=== PATIENT | female | born 1955 | race Caucasian/White ===

== ENCOUNTER → 2017-07-05 | Outpatient (CLI) | payer OTHER ==
--- NOTE | 2017-07-05 10:23 | REPMRS ---
Patient History The patient states she had a clinical breast exam in 06/05 Patient is postmenopausal. Family history of breast cancer in 2 paternal aunts at age 60. Took hormonal contraceptives for 29 years. Took unspecified hormones for 4 years. Digital Woman Screen Mammo: July 05, 2017 - Exam #: [id number] Bilateral CC and MLO view(s) were taken. Technologist: Claudette Williamson, Technologist Prior study comparison: June 10, 2016, digital woman screen mammo performed at [facility]. June 05, 2015, digital woman screen mammo performed at [facility]. FINDINGS: There are scattered fibroglandular densities. There has been no change in the appearance of the mammogram from the prior studies. There is a mild amount of residual fibroglandular tissue which is fairly symmetric. There is no interval development of dominant mass, architectural distortion, or clustered microcalcification suggestive of malignancy. ASSESSMENT: BI-RADS/ACR category 1 mammogram. Negative. Recommendation Routine screening mammogram in 1 year (for women over age 40). This mammogram was interpreted with the aid of an FDA-approved computer-aided dectection system. Electronically Signed By: Franklin Morrissey MD 07/05/17 1083
== END ==
LOC: M WHC 08:49
PROVIDERS: ATTEND Obstetrics & Gynecology
DX: Z12.31 Encounter for screening mammogram for malignant neoplasm of breast (principal); Z80.3 Family history of malignant neoplasm of breast; Z78.0 Asymptomatic menopausal state; Z92.0 Personal history of contraception; Z79.890 Hormone replacement therapy

== ENCOUNTER → 2018-07-06 | Outpatient (CLI) | payer OTHER | LOC: M WHC 09:47 | DX: Z12.31 Encounter for screening mammogram for malignant neoplasm of breast (principal); Z78.0 Asymptomatic menopausal state; Z80.3 Family history of malignant neoplasm of breast; Z79.3 Long term (current) use of hormonal contraceptives; Z79.818 Long term (current) use of other agents affecting estrogen receptors and estrogen levels | CPT/HCPCS: 77067 ==

== ENCOUNTER → 2019-09-10 | Outpatient (CLI) | payer OTHER ==
--- NOTE | 2019-09-10 10:03 | REPMRS ---
Patient History The patient states she had a clinical breast exam in June 2019.Family history of breast cancer at age 60 in paternal aunt. Took hormonal contraceptives for 29 years. Took unspecified hormones for 4 years. 3D TOMOSYNTHESIS WAS PERFORMED. The [facility] lifetime risk for breast cancer is 11.0%. Digital Woman Screen Mammo: September 10, 2019 - Exam #: [id number] Bilateral CC and MLO view(s) were taken. Technologist: Mely Koroma, Technologist Prior study comparison: July 06, 2018, bilateral digital woman screen mammo performed at [facility]. July 05, 2017, digital woman screen mammo performed at [facility]. FINDINGS: There are scattered fibroglandular densities. There has been no change in the appearance of the mammogram from the prior studies. There is a mild amount of residual fibroglandular tissue which is fairly symmetric. There is no interval development of dominant mass, architectural distortion, or clustered microcalcification suggestive of malignancy. Assessment: BI-RADS/ACR category 1 mammogram. Negative Mammogram. Recommendation Routine screening mammogram in 1 year (for women over age 40). This mammogram was interpreted with the aid of an FDA-approved computer-aided dectection system. Electronically Signed By: Franklin Morrissey MD 09/10/19 1002
--- NOTE | 2019-09-13 13:33 | DEXA ---
AP SPINE L1 - L4 1.322 1.0 2.4 LT FEMUR TOTAL 0.976 -0.3 0.8 LT NECK 0.891 -1.1 0.3 RT FEMUR TOTAL 0.992 -0.1 0.9 RT NECK 0.887 -1.1 0.2 TOTAL BODY TOTAL OTHER COMMENTS: Normal bone densitometry of the spine. There is low bone density of the hips. The decreased density of the spine does represent a significant change. The increased density of the left hip does not represent a signature change. The increased density of the right hip does represent a signature change. The density of the spine has increased 26.7% since the initial exam on 05/08/2009. The spine density has increased 9.9% since the most recent exam on 06/10/2016. The density of the left hip has increased 3.9% since the initial exam on 05/08/2009. The density of the left hip has increased 1.1% since the most recent exam on 06/10/2016. The density of the right hip has increased 4.5% since the initial exam on 05/08/2009. The density of the right hip has increased 2.1% since the most recent exam on 06/10/2016. FOLLOW-UP: Recommendation for the next bone density exam: 2 years. IDALIA
== END ==
LOC: M WHC 09:09
PROVIDERS: ATTEND Obstetrics & Gynecology
DX: Z12.31 Encounter for screening mammogram for malignant neoplasm of breast (principal); Z13.820 Encounter for screening for osteoporosis; Z92.0 Personal history of contraception

== ENCOUNTER → 2020-08-18 | Outpatient (REF) | payer OTHER ==
[2020-08-18 18:45] LABS: C REACTIVE PROTEIN QUANTITATIV < 0.30 MG/DL (0.00-0.30); COMPLEMENT C3 107 MG/DL (90-180); COMPLEMENT C4 29 MG/DL (10-40)
[2020-08-18 19:06] LABS: HEPATITIS B SURFACE ANTIGEN NEGATIVE (NEGATIVE)
[2020-08-18 19:34] LABS: HEPATITIS C VIRUS ABY INDEX < 0.0 INDEX (<0.8)
== END ==
LOC: M SFHCRHEU 14:01
PROVIDERS: ATTEND Internal Medicine
DX: M13.0 Polyarthritis, unspecified (principal); R76.8 Other specified abnormal immunological findings in serum; M53.3 Sacrococcygeal disorders, not elsewhere classified

== ENCOUNTER → 2020-08-19 | Outpatient (CLI) | payer OTHER ==
--- NOTE | 2020-08-19 10:53 | REP ---
INDICATION: SACROILIAC PAIN, POLYSRTHRITIS COMPARISON: 03/13/2015 TECHNIQUE: AP, lateral, bilateral oblique, and coned-down views of the lumbar spine. FINDINGS: Age-related osteopenia and moderate/early advanced multilevel degenerative changes include endplate sclerosis with hypertrophic facet changes and disc space narrowing primarily involving L5-S1. There appears to be a chronic compression fracture involving T12 and subtle chronic loss of height along the inferior endplate at L4. Alignment is maintained. No further suspicious acute fracture or dislocation noted. IMPRESSION: Osteopenia and degenerative changes including suspected chronic compression deformities at T12 and L4. Correlation is recommended. <Electronically signed by Brandon Yarbrough > 08/19/20 [id number]
--- NOTE | 2020-08-19 10:55 | REP ---
INDICATION: SACROILIAC PAIN, POLYSRTHRITIS. COMPARISON: None. TECHNIQUE: Four views of the bilateral sacroiliac joints. FINDINGS: Age-related osteopenia and age-related degenerative changes through the visualized osseous structures and joint spaces noted. Bilateral sacroiliac joints are symmetric and demonstrate mild increased periarticular sclerosis. IMPRESSION: Mild symmetric age-related degenerative changes. <Electronically signed by Brandon Yarbrough > 08/19/20 1052
--- NOTE | 2020-08-19 11:05 | REP ---
INDICATION: SACROILIAC PAIN, POLYSRTHRITIS. COMPARISON: None. TECHNIQUE: Four views of each hand are presented, total of 8 views. FINDINGS: Four views of the right hand demonstrate overall normal mineralization. There is osteoarthritic spurring and narrowing at the MCP joint, [facility]SING [facility] joint, and IP joint of the thumb. There is moderate osteoarthritic spurring of the DIP joints of the index and long finger on the right and lesser osteoarthritic changes are seen at the DIP joints of the ring and small finger. Osteoarthritic spurring is seen at the PIP joint of the long and small finger on the right. There is considerable soft tissue swelling about the PIP joint of the right long finger. Soft tissue swelling is also seen at the PIP joint of the small finger on the right. No definite bony erosive changes. On the left, there is moderate osteoarthritic change at the DIP joint of the long finger with soft tissue swelling. There is advanced osteoarthritic change at the PIP joint of the small finger with associated soft tissue swelling. There are central articular erosions consistent with erosive osteoarthritis. Mild central erosive changes seen at the DIP joint of the long finger on the left as well. Lesser osteoarthritic changes are noted at the IP joint of the thumb and the DIP joint of the index. There is mild 1st carpometacarpal joint osteoarthritis. IMPRESSION: Polyarticular arthropathy changes as above. 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 On the right the most prominent involvement is the PIP joint of the long finger.. <Electronically signed by Robert Grover > 08/19/20 3040
== END ==
LOC: M WUC 10:06
PROVIDERS: ATTEND Internal Medicine
DX: M53.3 Sacrococcygeal disorders, not elsewhere classified (principal); M13.0 Polyarthritis, unspecified

== ENCOUNTER → 2020-09-15 | Outpatient (CLI) | payer OTHER ==
--- NOTE | 2020-09-15 11:10 | REPMRS ---
Patient History The patient states she had a clinical breast exam in 07/2020. Family history of breast cancer at age 60 in paternal aunt. Took hormonal contraceptives for 29 years. Took unspecified hormones for 4 years. Digital Woman Screen Mammo: September 15, 2020 - Exam #: [id number] Bilateral CC and MLO view(s) were taken. Technologist: Anita Sanabria, Technologist Prior study comparison: September 10, 2019, bilateral digital woman screen mammo performed at [facility]. July 06, 2018, bilateral digital woman screen mammo performed at [facility]. July 05, 2017, digital woman screen mammo performed at [facility]. FINDINGS: The breast tissue is almost entirely fat. The Volpara volumetric breast density category is: A. There has been no change in the appearance of the mammogram from the prior studies. There is no interval development of dominant mass, architectural distortion, or grouped microcalcification typical of malignancy. 3-D tomosynthesis shows no additional findings. Assessment: BI-RADS/ACR category 1 mammogram. Negative Mammogram. Recommendation Routine screening mammogram of both breasts in 1 year (for women over age 40). This patient's [facility] Lifetime Breast Cancer RIsk is estimated at 10.6 %. This mammogram was interpreted with the aid of an FDA-approved computer-aided dectection system. Electronically Signed By: Robert Grover MD 09/15/20 [id number]
== END ==
LOC: M WHC 09:59
PROVIDERS: ATTEND Obstetrics & Gynecology
DX: Z12.31 Encounter for screening mammogram for malignant neoplasm of breast (principal)

== ENCOUNTER → 2021-03-10 | Outpatient (REF) | payer OTHER ==
[2021-03-10 11:45] LABS: BASO % 0.5 % (0.0-1.0); EOS # 0.1 10^3/uL (0.0-0.5); EOS % 2.1 % (0.0-3.0); HEMATOCRIT 47.2 % (36.0-47.0); HEMOGLOBIN 14.8 g/dl (12.0-15.5); LYMPH # 1.5 10^3/uL (1.5-5.0); LYMPH % 27.1 % (24.0-44.0); MEAN CORPUSCULAR HEMOGLOBIN 29.8 pg (27.0-33.0); MEAN CORPUSCULAR HGB CONC 31.4 g/dl (32.0-36.5); MEAN CORPUSCULAR VOLUME 95.2 fl (80.0-96.0); MONO # 0.5 10^3/uL (0.0-0.8); MONO % 7.9 % (2.0-8.0); NEUTROPHILS # 3.5 10^3/uL (1.5-8.5); PLATELET COUNT, AUTOMATED 268 10^3/uL (150-450); RED BLOOD COUNT 4.96 10^6/uL (4.00-5.40); WHITE BLOOD COUNT 5.7 10^3/uL (4.0-10.0)
[2021-03-10 12:14] LABS: ERYTHROCYTE SEDIMENTATION RATE 9 mm/hr (0-30)
[2021-03-10 12:46] LABS: ALBUMIN 4.3 GM/DL (3.2-5.2); ALT/SGPT 40 U/L (12-78); BILIRUBIN,TOTAL 0.5 MG/DL (0.2-1.0); BLOOD UREA NITROGEN 17 MG/DL (7-18); C REACTIVE PROTEIN QUANTITATIV 0.49 MG/DL (0.00-0.30); CALCIUM LEVEL 9.5 MG/DL (8.8-10.2); CARBON DIOXIDE LEVEL 30 MEQ/L (21-32); CHLORIDE LEVEL 108 MEQ/L (98-107); CREATININE FOR GFR 0.81 MG/DL (0.55-1.30); GLOMERULAR FILTRATION RATE > 60.0 (>45); GLUCOSE, FASTING 94 MG/DL (70-100); POTASSIUM SERUM 4.6 MEQ/L (3.5-5.1); SODIUM LEVEL 141 MEQ/L (136-145); TOTAL PROTEIN 7.7 GM/DL (6.4-8.2)
== END ==
LOC: M SFHCRHEU 10:27
PROVIDERS: ATTEND Internal Medicine Rheumatology
DX: M15.4 Erosive (osteo)arthritis (principal)

== ENCOUNTER → 2021-04-14 | Outpatient (CLI) | payer OTHER ==
[~2021-04-14] MED LIST: OMEGA-3 1000MG CAPSULE ONE
--- NOTE | 2021-04-14 15:15 | REPVR ---
PROCEDURE INFORMATION: Exam: MR Cervical Spine Without Contrast Exam date and time: 04/14/2021 10:56 AM Age: 65 years old Clinical indication: Neck pain. TECHNIQUE: Imaging protocol: Multiplanar magnetic resonance images of the cervical spine without contrast. COMPARISON: CR SPINE LS COMPLETE 08/19/2020 10:22 AM FINDINGS: Vertebrae: Unremarkable. Spinal cord: Normal signal. C2-C3: No significant disc disease. No significant spinal stenosis. C3-C4: There is disc desiccation. There is a moderate disc/osteophyte complex, partial toward the left, that flattens the ventral thecal sac and compromises the left neural foramen. C4-C5: There is disc desiccation. There is a moderate disc/osteophyte complex that flattens the ventral thecal sac. There is a small central disc protrusion. There is effacement of the ventral subarachnoid space and indentation of the ventral cervical cord. There is mild/moderate spinal canal stenosis. There is moderate bilateral uncovertebral joint arthropathy. There is mild bilateral neuroforaminal narrowing, right worse than left. C5-C6: There is disc desiccation. There is a moderate disc/osteophyte complex that flattens the ventral thecal sac. There is moderate bilateral uncovertebral joint arthropathy. There is moderate bilateral neural foraminal narrowing. There is mild/moderate spinal canal stenosis. C6-C7: There is disc desiccation. There is a moderate disc/osteophyte complex that flattens the ventral thecal sac. There is a small central disc protrusion. There is moderate bilateral uncovertebral joint arthropathy. There is moderate bilateral neural foraminal narrowing. There is mild spinal canal stenosis. C7-T1: No significant disc disease. No significant spinal stenosis. Soft tissues: Unremarkable. IMPRESSION: Multilevel degenerative changes causing varying degrees of spinal canal and neuroforaminal narrowing. Please see details above. Electronically signed by: Ricardo Oquendo On 04/14/2021 15:14:41 PM
--- NOTE | 2021-04-14 16:00 | REPVR ---
PROCEDURE INFORMATION: Exam: MR Thoracic Spine Without Contrast Exam date and time: 04/14/2021 10:56 AM Age: 65 years old Clinical indication: Pain in thoracic spine; Additional info: Disc like symptoms TECHNIQUE: Imaging protocol: Multiplanar magnetic resonance images of the thoracic spine without contrast. COMPARISON: CR SPINE LS COMPLETE 08/19/2020 10:22 AM FINDINGS: Vertebrae: There is a moderate acute T12 compression fracture. There is mild retropulsion of the posterosuperior cortex. There is mild/moderate spinal canal stenosis. Low signal abnormality within the central and anterior portion of the T12 vertebra raise concern for a pathologic fracture. There is a moderate old L1 compression fracture. There is mild loss of height of the superior endplates of T3 and T4. This appears old. Spinal cord: Normal signal. No cord compression. Discs/Spinal canal/Neural foramina: See "Vertebrae" finding. Soft tissues: Unremarkable. IMPRESSION: There is a moderate acute T12 compression fracture. There is mild retropulsion of the posterosuperior cortex. There is mild/moderate spinal canal stenosis. Low signal abnormality within the central and anterior portion of the T12 vertebra raise concern for a pathologic fracture. Please correlate with the presence of any known malignancy. Follow-up postcontrast MRI is recommended. Electronically signed by: Ricardo Oquendo On 04/14/2021 16:00:14 PM
--- NOTE | 2021-04-14 16:04 | REPVR ---
PROCEDURE INFORMATION: Exam: MR Lumbar Spine Without Contrast Exam date and time: 04/14/2021 11:12 AM Age: 65 years old Clinical indication: Low back pain; Additional info: Disc like symptoms TECHNIQUE: Imaging protocol: Multiplanar magnetic resonance images of the lumbar spine without intravenous contrast. COMPARISON: CR SPINE LS COMPLETE 08/19/2020 10:22 AM FINDINGS: Vertebrae: There is a moderate acute T12 compression fracture. There is mild retropulsion of the posterosuperior cortex. There is mild/moderate spinal canal stenosis. Low signal abnormality within the central and anterior portion of the T12 vertebra raise concern for a pathologic fracture. There are chronic compression fractures of T12, L1, L3, and L4. Spinal cord: Normal signal. No cord compression. L1-L2: There is mild retrolisthesis at this level. There is disc desiccation. There is a moderate central disc protrusion. There is facet arthropathy and ligamentum flavum hypertrophy. There is moderate spinal canal stenosis. There is moderate bilateral neural foraminal narrowing. L2-L3: There is mild disc bulging. There is a superimposed right foraminal disc herniation. There is moderate bilateral neural foraminal narrowing. There is facet arthropathy and ligamentum flavum hypertrophy. There is mild spinal canal stenosis. L3-L4: Disc bulging extends into both neural foramen causing moderate bilateral neural foraminal narrowing. There is facet arthropathy and ligamentum flavum hypertrophy. There is moderate spinal canal stenosis. L4-L5: Disc bulging extends into both neural foramen causing moderate bilateral neural foraminal narrowing. There is facet arthropathy and ligamentum flavum hypertrophy. There is mild spinal canal stenosis. L5-S1: No significant disc disease. No significant spinal canal stenosis. No neural foraminal stenosis. Soft tissues: Unremarkable. IMPRESSION: 1. There is a moderate acute T12 compression fracture. There is mild retropulsion of the posterosuperior cortex. There is mild/moderate spinal canal stenosis. Low signal abnormality within the central and anterior portion of the T12 vertebra raise concern for a pathologic fracture. Please correlate with the presence of any known malignancy. Follow-up postcontrast MRI is recommended. 2. There are chronic compression fractures of T12, L1, L3, and L4. 3. Multilevel degenerative changes causing variable degrees of spinal canal and neuroforaminal narrowing as described above. Electronically signed by: Ricardo Oquendo On 04/14/2021 16:03:57 PM
== END ==
LOC: M PLAIMG 09:32
PROVIDERS: ATTEND Chiropractor
DX: M99.03 Segmental and somatic dysfunction of lumbar region (principal); M54.42 Lumbago with sciatica, left side; M99.01 Segmental and somatic dysfunction of cervical region; M54.11 Radiculopathy, occipito-atlanto-axial region

== ENCOUNTER → 2021-07-02 | Outpatient (CLI) | payer OTHER ==
--- NOTE | 2021-07-02 15:18 | DEXAMM ---
INDICATION: DISORDER OF BONE DENSITY AND STRUCTURE. COMPARISON: 09/10/2019 as well as other prior exams. TECHNIQUE: Bone density was measured using dual-energy x-ray absorptiometry (DEXA). FINDINGS: AP SPINE L1-L4 BMD 1.278 g/cm2 Young Adult T-Score 0.7 Age Matched Z-Score 2.2. LT FEMUR, TOTAL BMD 0.969 g/cm2 Young Adult T-Score -0.3 Age Matched Z-Score 0.8. LT NECK BMD 0.855 g/cm2 Young Adult T-Score -1.3 Age Matched Z-Score 0.1. RT FEMUR, TOTAL BMD 0.967 g/cm2 Young Adult T-Score -0.3 Age Matched Z-Score 0.8. RT NECK BMD 0.919 g/cm2 Young Adult T-Score -0.9 Age Matched Z-Score 0.5. IMPRESSION: There is normal bone density of the spine. There is low bone density of the left hip. There is normal bone density of the right hip. The density of the spine has increased 22.5% since the initial exam on 05/08/2009. The density of the spine decreased 3.3% since most recent exam on 09/10/2019. The density of the left hip has increased 3.2% since initial exam on 05/08/2009. The density of the left hip has decreased 0.7% since most recent exam on 09/10/2019. The density of the right hip has increased 1.9% since the initial exam on 05/08/2009. The density of the right hip has decreased 2.5% since the most recent exam on 09/10/2019. FOLLOW-UP: Recommendation for the next bone density exam: 2 years. <Electronically signed by Franklin Morrissey > 07/02/21 [id number]
== END ==
LOC: M WHC 10:16
PROVIDERS: ATTEND Family Medicine
DX: M81.0 Age-related osteoporosis without current pathological fracture (principal)

== ENCOUNTER → 2021-07-29 | Outpatient (REF) | payer OTHER ==
[2021-07-29 12:31] LABS: BASO % 0.7 % (0.0-1.0); EOS # 0.1 10^3/uL (0.0-0.5); EOS % 2.2 % (0.0-3.0); HEMATOCRIT 45.2 % (36.0-47.0); HEMOGLOBIN 14.3 g/dl (12.0-15.5); LYMPH # 1.4 10^3/uL (1.5-5.0); LYMPH % 31.3 % (24.0-44.0); MEAN CORPUSCULAR HEMOGLOBIN 30.1 pg (27.0-33.0); MEAN CORPUSCULAR HGB CONC 31.6 g/dl (32.0-36.5); MEAN CORPUSCULAR VOLUME 95.2 fl (80.0-96.0); MONO # 0.4 10^3/uL (0.0-0.8); NEUTROPHILS # 2.6 10^3/uL (1.5-8.5); NEUTROPHILS % 56.6 % (36.0-66.0); PLATELET COUNT, AUTOMATED 260 10^3/uL (150-450); RED BLOOD COUNT 4.75 10^6/uL (4.00-5.40); WHITE BLOOD COUNT 4.6 10^3/uL (4.0-10.0)
[2021-07-29 12:50] LABS: ALBUMIN 4.1 GM/DL (3.2-5.2); ALT/SGPT 34 U/L (12-78); BILIRUBIN,TOTAL 0.5 MG/DL (0.2-1.0); BLOOD UREA NITROGEN 15 MG/DL (7-18); CALCIUM LEVEL 9.1 MG/DL (8.8-10.2); CARBON DIOXIDE LEVEL 30 MEQ/L (21-32); CHLORIDE LEVEL 108 MEQ/L (98-107); GLOMERULAR FILTRATION RATE > 60.0 (>45); GLUCOSE, FASTING 99 MG/DL (70-100); POTASSIUM SERUM 4.4 MEQ/L (3.5-5.1); SODIUM LEVEL 141 MEQ/L (136-145); TOTAL PROTEIN 7.4 GM/DL (6.4-8.2)
[2021-07-29 13:17] LABS: ERYTHROCYTE SEDIMENTATION RATE 9 mm/hr (0-30)
== END ==
LOC: M SFHCRHEU 10:20
PROVIDERS: ATTEND Internal Medicine Rheumatology
DX: M35.01 Sjogren syndrome with keratoconjunctivitis (principal)

== ENCOUNTER → 2021-09-16 | Outpatient (CLI) | payer OTHER ==
--- NOTE | 2021-09-16 09:13 | REPMRS ---
Patient History The patient states she had a clinical breast exam in June 2021. Family history of breast cancer at age 60 in paternal aunt. Took hormonal contraceptives for 29 years. Took unspecified hormones for 4 years. Tomosynthesis is performed. Volpara breast density is a. [facility] lifetime risk of breast cancer 10.2%. Patient states no breast complaints today. Patient has signed MRS History Sheet. Digital Woman Screen Mammo: September 16, 2021 - Exam #: [id number] Bilateral CC and MLO view(s) were taken. Technologist: Tomasa Juarez Technologist Prior study comparison: September 15, 2020, bilateral digital woman screen mammo performed at [facility] [place]. September 10, 2019, bilateral digital woman screen mammo performed at [facility] [place]. FINDINGS: There are scattered fibroglandular densities. There has been no change in the appearance of the mammogram from the prior studies. There is a mild amount of residual fibroglandular tissue which is fairly symmetric. There is no interval development of dominant mass, architectural distortion, or clustered microcalcification suggestive of malignancy. Assessment: BI-RADS/ACR category 1 mammogram. Negative Mammogram. Recommendation Routine screening mammogram in 1 year (for women over age 40). This mammogram was interpreted with the aid of an FDA-approved computer-aided dectection system. Electronically Signed By: Franklin Morrissey MD 09/16/21 0912
== END ==
LOC: M WHC 07:56
PROVIDERS: ATTEND Obstetrics & Gynecology
DX: Z12.31 Encounter for screening mammogram for malignant neoplasm of breast (principal)

== ENCOUNTER → 2022-01-19 | Outpatient (REF) | payer OTHER ==
[2022-01-19 12:49] LABS: BASO % 0.6 % (0.0-1.0); EOS # 0.1 10^3/uL (0.0-0.5); EOS % 2.1 % (0.0-3.0); HEMATOCRIT 43.8 % (36.0-47.0); HEMOGLOBIN 13.8 g/dl (12.0-15.5); LYMPH # 1.7 10^3/uL (1.5-5.0); LYMPH % 32.2 % (24.0-44.0); MEAN CORPUSCULAR HGB CONC 31.5 g/dl (32.0-36.5); MEAN CORPUSCULAR VOLUME 95.2 fl (80.0-96.0); MONO # 0.5 10^3/uL (0.0-0.8); MONO % 9.8 % (2.0-8.0); NEUTROPHILS # 2.9 10^3/uL (1.5-8.5); NEUTROPHILS % 55.1 % (36.0-66.0); PLATELET COUNT, AUTOMATED 236 10^3/uL (150-450); WHITE BLOOD COUNT 5.2 10^3/uL (4.0-10.0)
[2022-01-19 13:12] LABS: ERYTHROCYTE SEDIMENTATION RATE 12 mm/hr (0-30)
[2022-01-19 13:16] LABS: ALBUMIN 4.1 GM/DL (3.2-5.2); ALT/SGPT 33 U/L (12-78); BILIRUBIN,TOTAL 0.6 MG/DL (0.2-1.0); BLOOD UREA NITROGEN 17 MG/DL (7-18); C REACTIVE PROTEIN QUANTITATIV 0.98 MG/DL (0.00-0.30); CALCIUM LEVEL 9.7 MG/DL (8.8-10.2); CARBON DIOXIDE LEVEL 28 MEQ/L (21-32); CHLORIDE LEVEL 107 MEQ/L (98-107); CREATININE FOR GFR 0.72 MG/DL (0.55-1.30); GLOMERULAR FILTRATION RATE > 60.0 (>45); GLUCOSE, FASTING 88 MG/DL (70-100); POTASSIUM SERUM 4.4 MEQ/L (3.5-5.1); SODIUM LEVEL 142 MEQ/L (136-145); TOTAL PROTEIN 7.2 GM/DL (6.4-8.2)
== END ==
LOC: M SFHCRHEU 09:52
PROVIDERS: ATTEND Internal Medicine Rheumatology
DX: M35.01 Sjogren syndrome with keratoconjunctivitis (principal)

== ENCOUNTER → 2022-07-20 | Outpatient (REF) | payer OTHER ==
[2022-07-20 12:59] LABS: APPEARANCE, URINE MANUAL CLEAR (CLEAR); COLOR, URINE MANUAL YELLOW (YELLOW)
[2022-07-20 13:00] LABS: BILIRUBIN, URINE MANUAL NEGATIVE (NEGATIVE); BLOOD URINE MANUAL NEGATIVE (NEGATIVE); GLUCOSE, URINE (UA) MANUAL NEGATIVE (NEGATIVE); KETONE, URINE MANUAL NEGATIVE (NEGATIVE); LEUKOCYTE ESTERASE, URINE MAN NEGATIVE (NEGATIVE); NITRITE, URINE MANUAL NEGATIVE (NEGATIVE); PROTEIN, URINE MANUAL NEGATIVE (NEGATIVE); UROBILINOGEN, URINE MANUAL NORMAL (NORMAL)
[2022-07-20 13:05] LABS: BASO % 0.6 % (0.0-1.0); EOS # 0.1 10^3/uL (0.0-0.5); EOS % 1.9 % (0.0-3.0); HEMATOCRIT 44.3 % (36.0-47.0); HEMOGLOBIN 13.9 g/dl (12.0-15.5); LYMPH # 1.8 10^3/uL (1.5-5.0); MEAN CORPUSCULAR HGB CONC 31.4 g/dl (32.0-36.5); MEAN CORPUSCULAR VOLUME 95.5 fl (80.0-96.0); MONO # 0.5 10^3/uL (0.0-0.8); MONO % 9.1 % (2.0-8.0); NEUTROPHILS # 2.9 10^3/uL (1.5-8.5); PLATELET COUNT, AUTOMATED 266 10^3/uL (150-450); RED BLOOD COUNT 4.64 10^6/uL (4.00-5.40); WHITE BLOOD COUNT 5.4 10^3/uL (4.0-10.0)
[2022-07-20 13:44] LABS: ERYTHROCYTE SEDIMENTATION RATE 12 mm/hr (0-30)
[2022-07-20 13:52] LABS: ALBUMIN 4.2 GM/DL (3.2-5.2); ALT/SGPT 38 U/L (12-78); BILIRUBIN,TOTAL 0.5 MG/DL (0.2-1.0); BLOOD UREA NITROGEN 16 MG/DL (7-18); C REACTIVE PROTEIN QUANTITATIV 0.41 MG/DL (0.00-0.30); CALCIUM LEVEL 9.4 MG/DL (8.8-10.2); CARBON DIOXIDE LEVEL 30 MEQ/L (21-32); CHLORIDE LEVEL 104 MEQ/L (98-107); COMPLEMENT C3 132 MG/DL (90-180); COMPLEMENT C4 35 MG/DL (10-40); CREATININE FOR GFR 0.85 MG/DL (0.55-1.30); GLOMERULAR FILTRATION RATE > 60.0 (>45); GLUCOSE, FASTING 86 MG/DL (70-100); POTASSIUM SERUM 4.1 MEQ/L (3.5-5.1); SODIUM LEVEL 138 MEQ/L (136-145); TOTAL PROTEIN 7.6 GM/DL (6.4-8.2); TOTAL PROTEIN,RANDOM URINE 19.5 MG/DL (0.0-12.0)
== END ==
LOC: M SFHCRHEU 10:52
PROVIDERS: ATTEND Internal Medicine Rheumatology
DX: M15.4 Erosive (osteo)arthritis (principal); M35.01 Sjogren syndrome with keratoconjunctivitis; M51.36 Other intervertebral disc degeneration, lumbar region; Z79.899 Other long term (current) drug therapy; R76.8 Other specified abnormal immunological findings in serum; L40.8 Other psoriasis

== ENCOUNTER 2022-08-17 10:16 | Outpatient (RCR) | payer OTHER | END 2022-08-18 | LOC: M OT 10:16 | PROVIDERS: ATTEND Internal Medicine Rheumatology | DX: M15.4 Erosive (osteo)arthritis (principal) ==

== ENCOUNTER 2022-08-31 10:10 | Outpatient (RCR) | payer MEDICARE, OTHER | END 2022-09-18 | LOC: M OT 10:10 | PROVIDERS: ATTEND Internal Medicine Rheumatology | DX: M19.90 Unspecified osteoarthritis, unspecified site (principal) ==

== ENCOUNTER → 2022-09-16 | Outpatient (CLI) | payer MEDICARE, OTHER | LOC: M WHC 10:16 | PROVIDERS: ATTEND Obstetrics & Gynecology | DX: Z12.31 Encounter for screening mammogram for malignant neoplasm of breast (principal) ==

== ENCOUNTER → 2023-01-19 | Outpatient (REF) | payer OTHER ==
[2023-01-19 17:04] LABS: APPEARANCE, URINE CLEAR (CLEAR); BACTERIA, URINE AUTO NEGATIVE (NEGATIVE); BILIRUBIN, URINE AUTO NEGATIVE (NEGATIVE); BLOOD, URINE BLOOD NEGATIVE (NEGATIVE); COLOR, URINE YELLOW (YELLOW); GLUCOSE, URINE (UA) AUTO NEGATIVE (NEGATIVE); KETONE, URINE AUTO NEGATIVE (NEGATIVE); LEUKOCYTE ESTERASE, URINE AUTO NEGATIVE (NEGATIVE); NITRITE, URINE AUTO NEGATIVE (NEGATIVE); PROTEIN, URINE AUTO NEGATIVE (NEGATIVE); RBC, URINE AUTO 1 /HPF (0-3); SPECIFIC GRAVITY URINE AUTO 1.013 (1.002-1.035); SQUAMOUS EPITHELIAL CELL UR AU 0 /HPF (0-6); UROBILINOGEN, URINE AUTO 0.2 mg/dL (0.0-2.0); WBC, URINE AUTO 2 /HPF (0-3)
[2023-01-19 17:16] LABS: BASO % 0.3 % (0.0-1.0); EOS # 0.1 10^3/uL (0.0-0.5); EOS % 1.6 % (0.0-3.0); HEMATOCRIT 46.6 % (36.0-47.0); HEMOGLOBIN 14.7 g/dl (12.0-15.5); LYMPH # 1.6 10^3/uL (1.5-5.0); MEAN CORPUSCULAR HEMOGLOBIN 30.6 pg (27.0-33.0); MEAN CORPUSCULAR HGB CONC 31.5 g/dl (32.0-36.5); MEAN CORPUSCULAR VOLUME 97.1 fl (80.0-96.0); MONO # 0.5 10^3/uL (0.0-0.8); MONO % 7.5 % (2.0-8.0); NEUTROPHILS # 4.1 10^3/uL (1.5-8.5); NEUTROPHILS % 65.3 % (36.0-66.0); PLATELET COUNT, AUTOMATED 235 10^3/uL (150-450); WHITE BLOOD COUNT 6.3 10^3/uL (4.0-10.0)
[2023-01-19 17:25] LABS: TOTAL PROTEIN,RANDOM URINE 12.5 MG/DL (0.0-14.0)
[2023-01-19 17:30] LABS: CREATININE,RANDOM URINE 45.6 MG/DL
[2023-01-19 17:31] LABS: COMPLEMENT C4 35.7 MG/DL (12-36)
[2023-01-19 17:32] LABS: ALBUMIN 4.6 G/DL (3.2-5.2); ALKALINE PHOSPHATASE 76 U/L (46-116); ALT/SGPT 37 U/L (7.0-40); AST/SGOT 34 U/L (<34); BILIRUBIN,TOTAL 0.6 MG/DL (0.3-1.2); BLOOD UREA NITROGEN 13 MG/DL (9-23); CALCIUM LEVEL 9.5 MG/DL (8.3-10.6); CARBON DIOXIDE LEVEL 30 MMOL/L (20-31); CHLORIDE LEVEL 103 MMOL/L (98-107); CREATININE FOR GFR 0.77 MG/DL (0.55-1.30); GLOMERULAR FILTRATION RATE > 60.0 (>45); GLUCOSE, FASTING 78 MG/DL (74-106); SODIUM LEVEL 139 MMOL/L (136-145); TOTAL PROTEIN 7.6 G/DL (5.7-8.2)
[2023-01-19 18:50] LABS: ERYTHROCYTE SEDIMENTATION RATE 32 mm/hr (0-30)
== END ==
LOC: M SFHCRHEU 11:35
PROVIDERS: ATTEND Internal Medicine Rheumatology
DX: M35.01 Sjogren syndrome with keratoconjunctivitis (principal); M15.4 Erosive (osteo)arthritis; M51.36 Other intervertebral disc degeneration, lumbar region; Z79.899 Other long term (current) drug therapy; R76.8 Other specified abnormal immunological findings in serum; L40.8 Other psoriasis

== ENCOUNTER → 2023-07-04 | Outpatient (CLI) | payer MEDICARE, OTHER | LOC: M WHC 09:26 | PROVIDERS: ATTEND Internal Medicine Endocrinology, Diabetes & Metabolism | DX: M81.0 Age-related osteoporosis without current pathological fracture (principal) ==

== ENCOUNTER → 2023-07-21 | Outpatient (REF) | payer MEDICARE, OTHER ==
[2023-07-21 12:39] LABS: BASO % 0.6 % (0.0-1.0); EOS # 0.2 10^3/uL (0.0-0.5); EOS % 3.1 % (0.0-3.0); HEMATOCRIT 45.4 % (36.0-47.0); HEMOGLOBIN 14.3 g/dl (12.0-15.5); LYMPH # 1.3 10^3/uL (1.5-5.0); LYMPH % 25.4 % (24.0-44.0); MEAN CORPUSCULAR HEMOGLOBIN 30.3 pg (27.0-33.0); MEAN CORPUSCULAR HGB CONC 31.5 g/dl (32.0-36.5); MEAN CORPUSCULAR VOLUME 96.2 fl (80.0-96.0); MONO # 0.6 10^3/uL (0.0-0.8); NEUTROPHILS # 3.1 10^3/uL (1.5-8.5); NEUTROPHILS % 59.7 % (36.0-66.0); PLATELET COUNT, AUTOMATED 248 10^3/uL (150-450); RED BLOOD COUNT 4.72 10^6/uL (4.00-5.40); WHITE BLOOD COUNT 5.2 10^3/uL (4.0-10.0)
[2023-07-21 13:05] LABS: ERYTHROCYTE SEDIMENTATION RATE 22 mm/hr (0-30)
[2023-07-21 13:15] LABS: ALBUMIN 4.4 G/DL (3.2-5.2); ALKALINE PHOSPHATASE 86 U/L (46-116); ALT/SGPT 32 U/L (7.0-40); AST/SGOT 31 U/L (<34); BILIRUBIN,TOTAL 0.6 MG/DL (0.3-1.2); BLOOD UREA NITROGEN 14 MG/DL (9-23); CALCIUM LEVEL 9.8 MG/DL (8.3-10.6); CARBON DIOXIDE LEVEL 30 MMOL/L (20-31); CHLORIDE LEVEL 103 MMOL/L (98-107); CREATININE FOR GFR 0.76 MG/DL (0.55-1.30); GLOMERULAR FILTRATION RATE > 60.0 (>45); GLUCOSE, FASTING 90 MG/DL (74-106); POTASSIUM SERUM 4.3 MMOL/L (3.5-5.1); SODIUM LEVEL 139 MMOL/L (136-145); TOTAL PROTEIN 7.3 G/DL (5.7-8.2)
== END ==
LOC: M SFHCRHEU 10:21
PROVIDERS: ATTEND Internal Medicine Rheumatology
DX: M35.01 Sjogren syndrome with keratoconjunctivitis (principal); M15.4 Erosive (osteo)arthritis; M51.36 Other intervertebral disc degeneration, lumbar region; Z79.899 Other long term (current) drug therapy; R76.8 Other specified abnormal immunological findings in serum; L40.8 Other psoriasis

== ENCOUNTER → 2023-07-27 | Outpatient (REF) | payer MEDICARE, OTHER | LOC: M SFHCRHEU 10:35 | PROVIDERS: ATTEND Internal Medicine Rheumatology | DX: M15.4 Erosive (osteo)arthritis (principal); M35.01 Sjogren syndrome with keratoconjunctivitis; M51.36 Other intervertebral disc degeneration, lumbar region; Z79.899 Other long term (current) drug therapy; R76.8 Other specified abnormal immunological findings in serum; L40.8 Other psoriasis ==

== ENCOUNTER → 2023-09-21 | Outpatient (CLI) | payer MEDICARE, OTHER | LOC: M WHC 10:04 | PROVIDERS: ATTEND Obstetrics & Gynecology | DX: Z12.31 Encounter for screening mammogram for malignant neoplasm of breast (principal) ==

== ENCOUNTER → 2024-01-12 | Outpatient (REF) | payer MEDICARE, OTHER ==
[2024-01-12 13:33] LABS: C REACTIVE PROTEIN QUANTITATIV < 0.40 MG/DL (<1.0)
[2024-01-12 13:35] LABS: ALBUMIN 4.2 G/DL (3.2-5.2); ALKALINE PHOSPHATASE 73 U/L (46-116); ALT/SGPT 30 U/L (7.0-40); AST/SGOT 23 U/L (<34); BILIRUBIN,TOTAL 0.7 MG/DL (0.3-1.2); BLOOD UREA NITROGEN 16 MG/DL (9-23); CALCIUM LEVEL 9.6 MG/DL (8.3-10.6); CARBON DIOXIDE LEVEL 31 MMOL/L (20-31); CHLORIDE LEVEL 106 MMOL/L (98-107); CREATININE FOR GFR 0.79 MG/DL (0.55-1.30); GLOMERULAR FILTRATION RATE > 60.0 (>45); GLUCOSE, FASTING 93 MG/DL (74-106); POTASSIUM SERUM 4.7 MMOL/L (3.5-5.1); SODIUM LEVEL 144 MMOL/L (136-145); TOTAL PROTEIN 6.8 G/DL (5.7-8.2)
[2024-01-12 13:42] LABS: BASO % 0.6 % (0.0-1.0); EOS # 0.1 10^3/uL (0.0-0.5); HEMATOCRIT 44.7 % (36.0-47.0); LYMPH # 1.6 10^3/uL (1.5-5.0); LYMPH % 32.5 % (24.0-44.0); MEAN CORPUSCULAR HEMOGLOBIN 30.8 pg (27.0-33.0); MEAN CORPUSCULAR HGB CONC 31.3 g/dl (32.0-36.5); MEAN CORPUSCULAR VOLUME 98.5 fl (80.0-96.0); MONO # 0.5 10^3/uL (0.0-0.8); MONO % 9.8 % (2.0-8.0); NEUTROPHILS # 2.7 10^3/uL (1.5-8.5); NEUTROPHILS % 55.1 % (36.0-66.0); PLATELET COUNT, AUTOMATED 222 10^3/uL (150-450); RED BLOOD COUNT 4.54 10^6/uL (4.00-5.40); WHITE BLOOD COUNT 4.9 10^3/uL (4.0-10.0)
[2024-01-12 13:50] LABS: ERYTHROCYTE SEDIMENTATION RATE 13 mm/hr (0-30)
== END ==
LOC: M SFHCRHEU 09:42
PROVIDERS: ATTEND Internal Medicine Rheumatology
DX: M35.01 Sjogren syndrome with keratoconjunctivitis (principal); M15.4 Erosive (osteo)arthritis; M51.36 Other intervertebral disc degeneration, lumbar region; Z79.899 Other long term (current) drug therapy; R76.8 Other specified abnormal immunological findings in serum; L40.8 Other psoriasis

== ENCOUNTER → 2024-07-03 | Outpatient (CLI) | payer MEDICARE, OTHER | LOC: M WHC 12:25 | PROVIDERS: ATTEND Internal Medicine Endocrinology, Diabetes & Metabolism | DX: M81.0 Age-related osteoporosis without current pathological fracture (principal) ==

== ENCOUNTER → 2024-07-19 | Outpatient (REF) | payer MEDICARE, OTHER ==
[2024-07-19 12:59] LABS: BASO % 0.6 % (0.0-1.0); EOS # 0.1 10^3/uL (0.0-0.5); EOS % 1.9 % (0.0-3.0); HEMOGLOBIN 13.9 g/dl (12.0-15.5); LYMPH # 1.6 10^3/uL (1.5-5.0); LYMPH % 30.1 % (24.0-44.0); MEAN CORPUSCULAR HEMOGLOBIN 30.7 pg (27.0-33.0); MEAN CORPUSCULAR HGB CONC 32.3 g/dl (32.0-36.5); MEAN CORPUSCULAR VOLUME 94.9 fl (80.0-96.0); MONO # 0.5 10^3/uL (0.0-0.8); MONO % 9.6 % (2.0-8.0); NEUTROPHILS % 57.4 % (36.0-66.0); PLATELET COUNT, AUTOMATED 218 10^3/uL (150-450); RED BLOOD COUNT 4.53 10^6/uL (4.00-5.40); WHITE BLOOD COUNT 5.2 10^3/uL (4.0-10.0)
[2024-07-19 13:00] LABS: C REACTIVE PROTEIN QUANTITATIV < 0.40 MG/DL (<1.0)
[2024-07-19 13:02] LABS: ALKALINE PHOSPHATASE 67 U/L (35-104); ALT/SGPT 23 U/L (7.0-40); AST/SGOT 22 U/L (<34); BILIRUBIN,TOTAL 0.7 MG/DL (0.3-1.2); BLOOD UREA NITROGEN 18 MG/DL (9-23); CALCIUM LEVEL 9.5 MG/DL (8.3-10.6); CARBON DIOXIDE LEVEL 30 MMOL/L (20-31); CHLORIDE LEVEL 107 MMOL/L (98-107); CREATININE FOR GFR 0.81 MG/DL (0.55-1.30); GLOMERULAR FILTRATION RATE > 60.0 (>45); GLUCOSE, FASTING 93 MG/DL (74-106); POTASSIUM SERUM 3.9 MMOL/L (3.5-5.1); SODIUM LEVEL 141 MMOL/L (136-145)
[2024-07-19 13:25] LABS: ERYTHROCYTE SEDIMENTATION RATE 9 mm/hr (0-30)
== END ==
LOC: M SFHCRHEU 10:22
PROVIDERS: ATTEND Internal Medicine Rheumatology
DX: M35.01 Sjogren syndrome with keratoconjunctivitis (principal); R76.8 Other specified abnormal immunological findings in serum; L40.8 Other psoriasis; M15.4 Erosive (osteo)arthritis; M51.360 Other intervertebral disc degeneration, lumbar region with discogenic back pain only; Z79.899 Other long term (current) drug therapy

== ENCOUNTER → 2024-09-24 | Outpatient (CLI) | payer MEDICARE, OTHER | LOC: M WHC 10:13 | PROVIDERS: ATTEND Obstetrics & Gynecology | DX: Z12.31 Encounter for screening mammogram for malignant neoplasm of breast (principal) ==

== ENCOUNTER 2025-01-25 11:07 | Day surgery (SDC) | payer MEDICARE, OTHER ==
[~2025-01-25] VITALS: Ht 167.6 cm; Wt 77.2 kg
[2025-01-25] MEDS ORDERED: HYDR200T46 (11:14)
[2025-01-25] MEDS ORDERED: ROSU20TA86 (11:14)
[2025-01-25 11:45] LABS: BASO % 0.2 % (0.0-1.0); EOS % 0.3 % (0.0-3.0); HEMATOCRIT 45.3 % (36.0-47.0); HEMOGLOBIN 14.8 g/dl (12.0-15.5); LYMPH # 1.3 10^3/uL (1.5-5.0); LYMPH % 13.5 % (24.0-44.0); MEAN CORPUSCULAR HEMOGLOBIN 30.4 pg (27.0-33.0); MEAN CORPUSCULAR HGB CONC 32.7 g/dl (32.0-36.5); MONO # 0.7 10^3/uL (0.0-0.8); MONO % 7.3 % (2.0-8.0); NEUTROPHILS # 7.6 10^3/uL (1.5-8.5); NEUTROPHILS % 78.4 % (36.0-66.0); PLATELET COUNT, AUTOMATED 237 10^3/uL (150-450); RED BLOOD COUNT 4.87 10^6/uL (4.00-5.40); WHITE BLOOD COUNT 9.7 10^3/uL (4.0-10.0)
[2025-01-25 12:14] LABS: ALBUMIN 4.6 G/DL (3.2-5.2); BILIRUBIN,DIRECT 0.4 MG/DL (<0.4); TOTAL PROTEIN 7.7 G/DL (5.7-8.2)
[2025-01-25] MEDS ORDERED: ISOVUE-370 76% 100ML VIAL As Ordered ONE (13:39)
[2025-01-25 13:46] LABS: CALCIUM LEVEL 9.6 MG/DL (8.3-10.6); CREATININE FOR GFR 0.84 MG/DL (0.55-1.30); GLOMERULAR FILTRATION RATE 76.1 (>45); POTASSIUM SERUM 4.1 MMOL/L (3.5-5.1)
[2025-01-25] MEDS ORDERED: LIDOCAINE 2% 100MG/5ML SDV (FOR ANES.) As Ordered ONE (16:21)
[2025-01-25] MEDS ORDERED: propofoL 200 MG/20 ML VIAL As Ordered ONE (16:21)
[2025-01-25] MEDS ORDERED: ROCURONIUM BROMIDE 50MG/5ML VIAL As Ordered ONE (16:21)
[2025-01-25] MEDS ORDERED: MIDAZOLAM INJ 2MG/2ML VIAL As Ordered ONE (16:21)
[2025-01-25] MEDS ORDERED: fentaNYL 250 MCG/5 ML INJECTION As Ordered ONE (16:21)
[2025-01-25] MEDS: PIPERACILLIN/TAZOBACTAM SOD 3.375 GM in DEXTROSE 5% (D5W) ADV/MINI-BAG 50 ML IV ONE (16:24)
[2025-01-25] MEDS ORDERED: HYDR-3713 PO (16:28)
[2025-01-25] MEDS ORDERED: fentaNYL 100 MCG/2 ML INJECTION IV PRN (16:45)
[2025-01-25] MEDS ORDERED: ACETAMINOPHEN 1000MG/100ML IV BAG As Ordered ONE (17:43)
[2025-01-25] MEDS ORDERED: SUGAMMADEX SODIUM 500 MG/5 ML VIAL (BRIDION) As Ordered ONE (17:45)
[2025-01-25] MEDS ORDERED: ONDANSETRON 4MG 2ML VIAL As Ordered ONE (17:46)
[2025-01-25] MEDS ORDERED: KETOROLAC 30 MG/ML 1ML VIAL As Ordered ONE (17:46)
[2025-01-25] MEDS ORDERED: PHENYLephrine 500MCG 5ML (100MCG/ML) SYRINGE As Ordered ONE (17:48)
[2025-01-25] MEDS: LIDOCAINE 1% SDV 30ML VIAL As Ordered ONE (17:56)
[2025-01-25] MEDS: ONDANSETRON 4MG 2ML VIAL IV PRN (18:40)
[2025-01-25 19:19] VITALS: BP 139/72; TEMP 98.1; O2SAT 97
== END 2025-01-25 19:31 | disposition home or self-care (01) ==
LOC: M ED 11:07 → M SDC 16:12
PROVIDERS: ATTEND Specialist
DX: K35.890 Other acute appendicitis without perforation or gangrene (principal); R11.2 Nausea with vomiting, unspecified; R51.9 Headache, unspecified; M19.90 Unspecified osteoarthritis, unspecified site; M81.0 Age-related osteoporosis without current pathological fracture; E78.5 Hyperlipidemia, unspecified
CPT/HCPCS: 36415; 44970; 74177; 76705; 80047; 80048; 80076; 83690; 85025; 86850; 86900; 86901; 88304; 99284; J0131; J0665; J1100; J1885; J2250; J2371; J2405; J2543; J3010; Q9967